=== PATIENT | male | born 1950 | race Caucasian/White ===

== ENCOUNTER 2020-12-12 00:41 | Emergency (ER) | payer MEDICARE, OTHER ==
[~2020-12-12] VITALS: Ht 172.7 cm; Wt 75.0 kg
[2020-12-12] MEDS ORDERED: DEXAMETHASONE 4 MG TABLET PO ONE (01:30)
[2020-12-12] MEDS ORDERED: PLEASE ENTER ALLERGIES MC SCH (01:30)
[2020-12-12] MEDS ORDERED: MORPHINE SULFATE 4 MG/ML, 1ML IVPush ONE (01:30)
[2020-12-12] MEDS ORDERED: ONDANSETRON 2MG/ML, 2ML IVPush ONE (01:30)
[2020-12-12] MEDS ORDERED: LIDOCAINE-MPF 1%, 5ML ONE (01:36)
[2020-12-12] MEDS ORDERED: DEXAMETHASONE 4 MG/ML, 1ML ONE (01:37)
[2020-12-12] MEDS ORDERED: MORPHINE SULFATE 4 MG/ML, 1ML ONE (01:37)
[2020-12-12] MEDS ORDERED: ONDANSETRON 2MG/ML, 2ML ONE (01:37)
--- NOTE | 2020-12-12 01:51 | NUR ---
PT C/O OF SWOLLEN THROAT X2 DAYS THAT HAS BEGUN TO GET WORSE. PT STATES IT HAPPENED AFTER HE WAS HELPING FIX A BIRD BATH. DENIES FEVER/CHILLS, N/V/D, CP ERMD AT BEDSIDE FOR EVAL. ATTACHED TO MONITORS, VSS, NADN. BED IN LOW, RAILS ENGAGED, CALL LIGHT ON LAP.
[2020-12-12] MEDS ORDERED: DEXAMETHASONE 4 MG/ML, 1ML IVPush ONE (02:00)
[2020-12-12 02:10] LABS: BASOPHILS % (AUTO) 1 % (0-1); EOSINOPHILS % (AUTO) 1 % (1-7); LYMPHOCYTES % (AUTO) 13 % (22-44); MEAN CORPUSCULAR HEMOGLOBIN 31.6 pg (27.5-34.5); MEAN CORPUSCULAR HGB CONC 34.2 g/dL (33.2-36.2); MEAN PLATELET VOLUME 7.5 fL (7.4-10.4); MONOCYTES % (AUTO) 10 % (2-9); NEUTROPHILS % (AUTO) 75 % (42-75); PLATELET COUNT 277 x10^3/uL (130-400); RED CELL DISTRIBUTION WIDTH 13.1 % (9.4-14.8)
[2020-12-12 02:20] LABS: ANION GAP 7 mmol/L (5-15); CALCIUM 8.6 mg/dL (8.5-10.1); CHLORIDE 103 mmol/L (98-107); CREATININE 0.73 mg/dL (0.7-1.3)
[2020-12-12] MEDS ORDERED: OMNIPAQUE 350 MG/ML, 100ML BOTTLE ONE (03:05)
--- NOTE | 2020-12-12 03:08 | NUR ---
PT BACK FROM CT. ATTACHED TO [facility]. VSS. NADN. VIDES
--- NOTE | 2020-12-12 04:59 | NUR ---
[facility]
--- NOTE | 2020-12-12 05:02 | NUR ---
PT AMBULATED BACK TO ROOM WITH STEADY GAIT. PT ATTACHED TO MONITORS. YURIY. AYALA. AWAITING CT RESULTS. WCTM
--- NOTE | 2020-12-12 05:45 | NUR ---
PA AT BEDSIDE FOR PROCEDURE
[2020-12-12 05:59] VITALS: BP 133/66
[2020-12-12] MEDS ORDERED: AMOXICILLIN 250 MG/5 ML, ORAL SUSP PO ONE (06:00)
--- NOTE | 2020-12-12 07:07 | NUR ---
Patient/Caregiver given discharge instructions and they have confirmed that they understand the instructions. Patient ambulatory with steady gait. NAD, all questions answered appropriately, denies additional needs at this time. No personal belongings left in room after discharge.
== END 2020-12-12 07:08 | disposition home or self-care (01) ==
LOC: ED 01:00
DX: R07.0 Pain in throat (principal); H92.02 Otalgia, left ear; Z20.822 Contact with and (suspected) exposure to COVID-19; F17.210 Nicotine dependence, cigarettes, uncomplicated; J36 Peritonsillar abscess
CPT/HCPCS: 36415; 70491; 80048; 85025; 87081; 87880; 96374; 96375; 99285; 99406; J1100; J2270; J2405; Q9967; U0003; U0005